=== PATIENT | male | born 1995 | race Two or more races ===

== ENCOUNTER → 2020-06-18 09:26 | Outpatient (BNVA) | payer OTHER, SELFPAY | PROVIDERS: Visit Provider Physician Assistant Medical | DX: S39.012A Strain of muscle, fascia and tendon of lower back, initial encounter (principal); X50.1XXA Overexertion from prolonged static or awkward postures, initial encounter | CPT/HCPCS: 72100; 72200; 99203 ==

== ENCOUNTER → 2020-06-22 08:22 | Outpatient (BNVA) | payer OTHER, SELFPAY | PROVIDERS: PCP Nurse Practitioner Family; Visit Provider Physician Assistant Medical | DX: S39.012D Strain of muscle, fascia and tendon of lower back, subsequent encounter (principal); S33.6XXD Sprain of sacroiliac joint, subsequent encounter; X58.XXXD Exposure to other specified factors, subsequent encounter | CPT/HCPCS: 99213 ==

== ENCOUNTER 2020-06-30 15:00 | Outpatient (RCR) | payer OTHER, SELFPAY ==
--- NOTE | 2020-06-25 09:00 | MHC.PT.EP ---
[facility] [place] Office [place] [facility] [place] Office [address] Deloris Vazquez [address] [phone] F: [phone] F: [phone] F: [phone] F: [phone] Physical Therapy Plan of Care Date of Evaluation: Date of Surgery: NA Diagnosis: L lumbar strain/ SI pain Assessment: 24 year old male referred for lumbar strain/ SI pain . Pt reports of having sudden onset of pain in his back about 2 weeks back following an injury at work. On PT examination pt had 3/10 pain with sitting, standing and walking for more than 20 minutes, no TTP, decreased trunk ROM, decreased abdominal muscle strength, altered posture and gait. He would benefit from skilled PT to address the aforementioned impairments to improve tolerance to sitting, standing, walking and return to PLOF. He is very motivate to participate in therapy. Frequency and Duration: The patient will be seen 2/week for 5 weeks. Short Term Goals: 1. Pt will have 50% decrease in pain which will improve his tolerance to sitting in 2 weeks. 2. Pt will be able to move his trunk through full plane of motion without pain which will enable him perform his ADLS in 3 weeks. [employer] Goals: 1. Pt will demonstrate an increase in muscle strength by 1 grade which will help increase his tolerance to standing, walking and lifting weights in 4 weeks. 2. Pt will be independent with HEPs for symptom management and maintenance following d/c in 5 weeks. 3. Pt will return to PLOF and will be able to return to skate boarding and exercising without pain in 5 weeks. Treatment Plan: Modalities to reduce pain, spasms and effusion. Manual therapy to restore motion and function. Therapeutic exercise to improve strength and flexibility. Neuromuscular re-education for posture and balance. Therapeutic activities to return to functional activities of daily living. Electronically signed by: Rose Nowak, PT, DPT Please sign and return to therapist. Thank you for your referral.
--- NOTE | 2020-08-07 11:45 | MHC.PT.DC ---
[facility] [place] Office [place] Office [place] Office [address] Deloris Vazquez [address] [phone] F: [phone] F: [phone] F: [phone] F: [phone] Physical Therapy Discharge Report Diagnosis: L lumbar strain/ SI pain Date of Surgery: NA Date of Evaluation: 06/25/20 Date of Discharge: 08/07/20 Treatments to Date: 2 Cancellations to Date: 2 No Shows to Date: 5 Discharge Status: Visit Non-compliance Discharge Summary: Nj ferrell showed for 5 appointments and canceled 2 appointments. When called pt stated he is unable to attend therapy due to work schedule. He has therefore been discharged from therapy. Electronically signed by: Rose Nowak, PT, DPT Please sign and return to therapist. Thank you for your referral.
== END 2020-08-07 11:46 | disposition other institution (70) ==
LOC: HO.PT 15:00
PROVIDERS: PCP Nurse Practitioner Family; Visit Provider Physician Assistant Medical
DX: S39.012D Strain of muscle, fascia and tendon of lower back, subsequent encounter (principal); M53.3 Sacrococcygeal disorders, not elsewhere classified
CPT/HCPCS: 97112; 97140; 97161

== ENCOUNTER → 2021-03-26 09:06 | Outpatient (BNVA) | payer OTHER, SELFPAY | PROVIDERS: PCP Nurse Practitioner Family; Visit Provider Internal Medicine | DX: Z02.79 Encounter for issue of other medical certificate (principal) ==